=== PATIENT | female | born 1990 ===

== ENCOUNTER 2019-01-08 08:45 | Emergency (ER) | payer OTHER ==
[~2019-01-08] VITALS: Ht 152.4 cm; Wt 44.5 kg
[2019-01-08] MEDS ORDERED: SYNTHROID100 MCG (08:53)
== END 2019-01-08 13:46 | disposition home or self-care (01) ==
LOC: ER 08:45
DX: K52.9 Noninfective gastroenteritis and colitis, unspecified (principal)

== ENCOUNTER 2019-02-24 19:35 | Emergency (ER) | payer OTHER ==
[~2019-02-24] VITALS: Ht 152.4 cm; Wt 44.5 kg
[~2019-02-24 19:35] MED LIST: SYNTHROID100 MCG
== END 2019-02-24 22:47 | disposition home or self-care (01) ==
LOC: ER 19:35
DX: K29.60 Other gastritis without bleeding (principal)

== ENCOUNTER 2019-03-22 19:22 | Emergency (ER) | payer OTHER ==
[~2019-03-22] VITALS: Ht 152.4 cm; Wt 43.5 kg
== END 2019-03-22 22:58 | disposition home or self-care (01) ==
LOC: ER 19:22
DX: E03.8 Other specified hypothyroidism (principal)

== ENCOUNTER 2019-03-23 10:53 | Emergency (ER) | payer OTHER ==
[~2019-03-23] VITALS: Ht 152.4 cm; Wt 44.0 kg
== END 2019-03-23 15:33 | disposition home or self-care (01) ==
LOC: ER 10:53
DX: K29.60 Other gastritis without bleeding (principal)